=== PATIENT | female | born 1985 | race Caucasian/White ===

== ENCOUNTER 2018-01-27 00:08 | Emergency (ER) | payer SELFPAY ==
[~2018-01-27 00:08] MED LIST: ETON1VAG7; FAM20 PO; FEXO30TA36 PO; HYO125 SL; MULT-1335 PO; PAN40 PO; PER PO; TRET15GE13 TOP; [UNRECOGNIZED DRUG - OTHER]; [UNRECOGNIZED DRUG - OTHER]
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
[2018-01-27 01:30] LABS: PLATELET COUNT, AUTOMATED 345 K/uL (150-450)
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
[2018-01-27 06:13] VITALS: BP 132/90
== END 2018-01-27 09:55 | disposition home or self-care (01) ==
LOC: ER 00:10
DX: F43.20 Adjustment disorder, unspecified (principal); R45.851 Suicidal ideations; F10.10 Alcohol abuse, uncomplicated
CPT/HCPCS: 80305; 80320; 80329; 81001; 82040; 82247; 82310; 82374; 82435; 82565; 82947; 83735; 84075; 84132; 84155; 84295; 84443; 84450; 84460; 84520; 84703; 85025; 99283

== ENCOUNTER → 2018-10-09 | Outpatient (CLI) | payer BC, MEDICAID ==
[~2018-10-09] MED LIST changes: +BET6I IM ONLY; +CLOB15OI16 TP; +DIPH0.5D12 IM; +PREN-127 PO; +SERT25TA87 PO; +SERT25TA90 PO
[2018-10-09 15:38] LABS: PLATELET COUNT, AUTOMATED 260 K/uL (150-450)
== END ==
LOC: LAB 14:02
PROVIDERS: ATTEND Advanced Practice Midwife
DX: Z11.3 Encounter for screening for infections with a predominantly sexual mode of transmission (principal); O13.2 Gestational [pregnancy-induced] hypertension without significant proteinuria, second trimester
CPT/HCPCS: 36415; 82040; 82247; 82310; 82374; 82435; 82565; 82570; 82947; 82950; 84075; 84132; 84155; 84156; 84295; 84450; 84460; 84520; 85025; 86703

== ENCOUNTER → 2018-10-16 | Outpatient (CLI) | payer BC, MEDICAID ==
[~2018-10-16] MED LIST changes: -BET6I IM ONLY
== END ==
LOC: LAB 07:49
PROVIDERS: ATTEND Advanced Practice Midwife
DX: O12.10 Gestational proteinuria, unspecified trimester (principal)
CPT/HCPCS: 84156

== ENCOUNTER → 2018-10-20 | Outpatient (CLI) | payer BC, MEDICAID | LOC: LAB 16:13 | PROVIDERS: ATTEND Advanced Practice Midwife | DX: O13.3 Gestational [pregnancy-induced] hypertension without significant proteinuria, third trimester (principal) | CPT/HCPCS: 36415; 82040; 82247; 82310; 82374; 82435; 82565; 82947; 84075; 84132; 84155; 84295; 84450; 84460; 84520; 85027 ==

== ENCOUNTER → 2018-10-26 | Outpatient (CLI) | payer BC, MEDICAID ==
--- NOTE | 2018-10-26 13:06 | RADIOLOGY IMAGING REPORT ---
FACILITY: [facility] PATIENT NAME: Dawna Ackerman : 1985 MR: [id number] V: [id number] EXAM DATE: ORDERING PHYSICIAN: RODRIGO CRESPO TECHNOLOGIST: Location: [facility] [place] Patient: Dawna Ackerman : 1985 Visit/Account:[id number] Date of Sevice: 10/26/2018 EXAMINATION: Limited Transabdominal OB Ultrasound >14 wks Without Full Anatomic Survey 10/26/2018 9:45 AM HISTORY: Gestational hypertension. Assess growth, PIA, EFW. COMPARISON: None available FINDINGS: Intrauterine gestations: one presentation: vertex heart rate: 179 bpm Amniotic fluid index: 19.0 cm Largest amniotic fluid pocket 6.2 cm Placenta: Posterior without previa Uterus: gravid, otherwise normal Maternal adnexa: negative Cervix: Grossly closed. Transvaginal imaging was not done. Gestational Parameters: BPD: 8.2 cm 33 weeks 1 day HC: 29.6 cm 32 weeks 6 days AC: 27.8 cm 31 weeks 6 days FL: 5.8 cm 30 weeks 2 days Average ultrasound age (AUA): 32 weeks 1 day Estimated gestational age by LMP: 31 weeks 1 day Estimated weight (EFW): 1786 grams +/- 261 grams EFW for LMP percentile: 51 Anatomic Survey: Complete anatomic survey was not performed. IMPRESSION: 1. Single live intrauterine gestation; estimated ultrasound age 32 weeks 1 day (LEONIE 12/20/2018). This is 1 week ahead of expected dates, within range of error. 2. EFW 51st percentile, 1786 g. 3. Normal PIA, 19.0 cm. Report Dictated By: Santy Begum MD at 10/26/2018 12:59 PM Report E-Signed By: Santy Begum MD at 10/26/2018 1:02 PM WSN:[email or web address]
== END ==
LOC: RAD 09:42
PROVIDERS: ATTEND Advanced Practice Midwife
DX: Z02.9 Encounter for administrative examinations, unspecified (principal)

== ENCOUNTER → 2018-10-26 | Outpatient (CLI) | payer BC, MEDICAID | LOC: LAB 10:22 | PROVIDERS: ATTEND Advanced Practice Midwife | DX: O13.9 Gestational [pregnancy-induced] hypertension without significant proteinuria, unspecified trimester (principal) | CPT/HCPCS: 82570; 84156 ==

== ENCOUNTER → 2018-11-02 | Outpatient (CLI) | payer BC, MEDICAID ==
[2018-11-02 15:38] LABS: PLATELET COUNT, AUTOMATED 272 K/uL (150-450)
== END ==
LOC: LAB 10:42
PROVIDERS: ATTEND Advanced Practice Midwife
DX: O13.3 Gestational [pregnancy-induced] hypertension without significant proteinuria, third trimester (principal)
CPT/HCPCS: 36415; 82040; 82247; 82310; 82374; 82435; 82565; 82570; 82947; 84075; 84132; 84155; 84156; 84295; 84450; 84460; 84520; 85025

== ENCOUNTER → 2018-11-05 | Outpatient (CLI) | payer BC, MEDICAID | LOC: LAB 09:41 | PROVIDERS: ATTEND Obstetrics & Gynecology | DX: O13.9 Gestational [pregnancy-induced] hypertension without significant proteinuria, unspecified trimester (principal) | CPT/HCPCS: 82570; 84156 ==

== ENCOUNTER → 2018-11-09 | Outpatient (CLI) | payer BC, MEDICAID ==
[~2018-11-09] MED LIST changes: +BET6I IM ONLY; +DIPH-911 PO; -DIPH0.5D12 IM; +DIPH0.5S2 IM; +IBUP800T37 PO; +NIFE-15 PO; +OMEG100027 PO; +SERT-1 PO
[2018-11-09 15:45] LABS: PLATELET COUNT, AUTOMATED 230 K/uL (150-450)
== END ==
LOC: LAB 08:37
PROVIDERS: ATTEND Student in an Organized Health Care Education/Training Program
DX: O16.3 Unspecified maternal hypertension, third trimester (principal)
CPT/HCPCS: 36415; 82040; 82247; 82310; 82374; 82435; 82565; 82570; 82947; 84075; 84132; 84155; 84156; 84295; 84450; 84460; 84520; 85025

== ENCOUNTER → 2018-11-16 | Outpatient (CLI) | payer BC, MEDICAID | LOC: LAB 15:11 | PROVIDERS: ATTEND Advanced Practice Midwife | DX: O13.3 Gestational [pregnancy-induced] hypertension without significant proteinuria, third trimester (principal) | CPT/HCPCS: 36415; 82040; 82247; 82310; 82374; 82435; 82565; 82570; 82947; 84075; 84132; 84155; 84156; 84295; 84450; 84460; 84520; 85027 ==

== ENCOUNTER → 2018-11-23 | Outpatient (CLI) | payer BC, MEDICAID ==
[2018-11-23 16:50] LABS: PLATELET COUNT, AUTOMATED 222 K/uL (150-450)
== END ==
LOC: LAB 16:34
PROVIDERS: ATTEND Student in an Organized Health Care Education/Training Program
DX: Z36.85 Encounter for antenatal screening for Streptococcus B (principal); O13.3 Gestational [pregnancy-induced] hypertension without significant proteinuria, third trimester
CPT/HCPCS: 36415; 82040; 82247; 82310; 82374; 82435; 82565; 82947; 84075; 84132; 84155; 84295; 84450; 84460; 84520; 85025; 87077; 87081; 87186

== ENCOUNTER → 2018-11-30 | Outpatient (CLI) | payer BC, MEDICAID ==
[~2018-11-30] MED LIST changes: -DIPH-911 PO; +DIPH0.5D12 IM; -DIPH0.5S2 IM; -IBUP800T37 PO; -NIFE-15 PO; -OMEG100027 PO; -SERT-1 PO
== END ==
LOC: LAB 08:08
PROVIDERS: ATTEND Student in an Organized Health Care Education/Training Program
DX: O13.9 Gestational [pregnancy-induced] hypertension without significant proteinuria, unspecified trimester (principal)
CPT/HCPCS: 36415; 82040; 82247; 82310; 82374; 82435; 82565; 82570; 82947; 84075; 84132; 84155; 84156; 84295; 84450; 84460; 84520; 85027

== ENCOUNTER → 2018-12-03 | Outpatient (CLI) | payer BC, MEDICAID ==
--- NOTE | 2018-12-03 13:01 | RADIOLOGY IMAGING REPORT ---
FACILITY: [facility] PATIENT NAME: Dawna Ackerman : 1985 MR: [id number] V: [id number] EXAM DATE: ORDERING PHYSICIAN: RODRIGO CRESPO TECHNOLOGIST: Location: [facility] Patient: Dawna Ackerman : 1985 Visit/Account:[id number] Date of Sevice: 12/03/2018 EXAMINATION: Ultrasound transabdominal OB HISTORY: Evaluate growth and PIA COMPARISON: October 26, 2018 TECHNIQUE: Transabdominal imaging was performed for assessment of the fetus and maternal pelvic structures. T ransvaginal imaging was not performed. FINDINGS: Placenta: Fundal without previa. Uterus: Gravid, otherwise normal Cervix: Not evaluated Maternal Ovaries: Not visualized. Maternal and other adnexa findings: Not evaluated Intrauterine gestations: One. presentation: Cephalic heart rate: Normal and regular at 149 bpm Amniotic fluid index: 15.06 cm Largest amniotic fluid pocket: 6.27 cm Gestational Parameters: BPD: 9.07 cm 36 weeks/ six days, 68% HC: 31.89 cm 36 weeks/ zero days, 11% AC: 31.95 cm 36 weeks/ zero days, 42% FL: 7.14 cm 36 weeks/ five days, 48% Average ultrasound age (AUA): 36 weeks/three days, LEONIE 12/28/2018 Estimated gestational age by LEONIE: 36 weeks/four days, LEONIE 12/27/2018 Estimated weight (EFW): 2864 grams +/- 418 grams EFW for LEONIE: 42 percentile Anatomic Survey: Anatomic survey not performed IMPRESSION: Single viable fetus in cephalic presentation with an estimated gestational age by measur ements of 36 weeks and three days. Estimated weight by LMP 36 weeks and four days Report Dictated By: Felicita Berry MD at 12/03/2018 12:51 PM Report E-Signed By: Felicita Berry MD at 12/03/2018 12:56 PM WSN:[email or web address]
== END ==
LOC: US 09:35
PROVIDERS: ATTEND Student in an Organized Health Care Education/Training Program
DX: Z02.9 Encounter for administrative examinations, unspecified (principal)

== ENCOUNTER 2018-12-07 17:03 | Outpatient (CLI) | payer BC, MEDICAID ==
[2018-12-07 17:30] VITALS: BP 160/101
[2018-12-07 17:53] LABS: PLATELET COUNT, AUTOMATED 226 K/uL (150-450)
[2018-12-14] MEDS ORDERED: NIFE-15 PO (09:36)
[2018-12-14] MEDS ORDERED: IBUP800T37 PO (09:36)
== END 2018-12-07 19:40 | disposition home or self-care (01) ==
LOC: OB 17:03 → UNDOADMIN 17:03 → L&D 17:03 → UNDODISIN 19:40 → EDSTATUS 12-13 07:14
PROVIDERS: ATTEND Student in an Organized Health Care Education/Training Program
DX: O47.1 False labor at or after 37 completed weeks of gestation (principal); Z3A.37 37 weeks gestation of pregnancy
CPT/HCPCS: 36415; 59025; 82040; 82247; 82310; 82374; 82435; 82565; 82570; 82947; 84075; 84132; 84155; 84156; 84295; 84450; 84460; 84520; 85025; 99213

== ENCOUNTER → 2018-12-07 | Outpatient (CLI) | payer BC, MEDICAID | LOC: LAB 13:45 | PROVIDERS: ATTEND Student in an Organized Health Care Education/Training Program | DX: Z02.9 Encounter for administrative examinations, unspecified (principal) ==

== ENCOUNTER 2018-12-11 04:29 | Inpatient (IN) | payer BC, MEDICAID ==
[~2018-12-11] VITALS: Ht 162.6 cm; Wt 104.8 kg
[2018-12-11] MEDS ORDERED: LR(*) 1000 ML BAG 1,000 ML IV PRN (04:31)
[2018-12-11] MEDS ORDERED: DLR(*) 1000 ML BAG 1,000 ML IV PRN (04:31)
[2018-12-11 04:40] VITALS: BP 181/94; Ht 162.6 cm; Wt 104.8 kg
[2018-12-11] MEDS ORDERED: LIDOCAINE/SOD BICARB 8.4% SYR ONE (04:59)
[2018-12-11] MEDS ORDERED: OXYTOCIN 30 UNIT/D5LR 500 ML 500 ML IV PRN (05:00)
[2018-12-11] MEDS ORDERED: PENICILLIN G 5 MILLUN/100 ML 100 ML IVPB ONE (05:30)
[2018-12-11] MEDS ORDERED: fentaNYL CITR 100 MCG/2 ML AMP IVP PRN (06:20)
[2018-12-11] MEDS ORDERED: OXYTOCIN 30 UNIT/D5LR 500 ML 500 ML ONE (06:28)
[2018-12-11] MEDS ORDERED: fentaNYL CITR 100 MCG/2 ML AMP ONE (06:29)
[2018-12-11] MEDS ORDERED: LIDO/EPI 2% MPF 1:200,000 20ML EPI PRN (06:40)
[2018-12-11] MEDS ORDERED: BUPIVACAINE 0.5% INJ 30ML VIAL EPI PRN (06:40)
[2018-12-11] MEDS ORDERED: FENTANYL/ROPIVACAINE 100 ML BAG EPI PRN (06:40)
[2018-12-11] MEDS ORDERED: fentaNYL CITR 100 MCG/2 ML AMP IT PRN (06:40)
[2018-12-11] MEDS ORDERED: LIDOCAINE/PF 2% 200MG/10ML AMP 200 MG/10 ML AMPUL EPI PRN (06:40)
[2018-12-11] MEDS ORDERED: BUPIVACAINE 0.25% MPF INJ EPI PRN (06:40)
[2018-12-11 06:43] LABS: PLATELET COUNT, AUTOMATED 227 K/uL (150-450)
[2018-12-11] MEDS ORDERED: BUPIVACAINE 0.25% MPF INJ ONE (06:49)
--- NOTE | 2018-12-11 08:14 | History & Physical ---
History of Present Illness Age of Patient: 33 : 1 Para or TPAL: 0 EDC per U/S: Dec 27, 2018 Estimated Gestational Age: 37.5 Chief Complaint Patient reports a gush of fluid about 1am on 12/11/18 while she was sleeping. When she got up the fluid continued to leak and was clear. Her contractions started shortly there after and were mild in nature. +FM, denies VB, DENTON, vision changes and RUQ pain. She called motion picture scene builder [facility] and was told to at least come in at 0400 as she is GBS and needed to receive PCN in labor. Contractions became intense about 4 minutes apart and difficult to talk through once she arrived at the hospital at 4:20 History Patient's Blood Type: B Positive Rubella Status: Immune Group B Strep Screen: Negative Obstetrical History: Pre-eclampsia without severe features with significant proteinuria Allergies: Coded Allergies: No Known Allergies (Verified Allergy, Mild, 04/18/17) Social History: Denies ETOH, smoking, and illicit drug use including marijuana Family History: Cervical cancer MOTHER FH: breast cancer M AUNT FH: colon cancer MGF Med Rec Home Meds Active Scripts Sertraline Hcl (SERTRALINE HCL) 25 Mg Tablet, 4 TAB PO QDAY, #90 TAB 3 Refills 100mg PO Q Day Prov:RODRIGO CRESPO [facility] 11/05/18 Reported Medications Diphenhydramine Hcl (UNISOM) 50 Mg Capsule, 50 MG PO PRN PRN for SLEEP, CAPSULE 12/11/18 [place]-3 Fatty Acids (FISH OIL CONCENTRATE) 1,000 Mg Capsule, 1000 MG PO, CAPSULE 12/11/18 Vits W-Ca,Fe,Fa(<1MG) ( VITAMINS) 1 Each Tablet, 1 EACH PO DAILY, TAB 08/31/18 Discontinued Scripts Sertraline Hcl (ZOLOFT) 25 Mg Tablet, 1 TAB PO QDAY for Anxiety, #40 TAB 0 Refills Take one 25mg tab daily for 5 days and then increase to 2 tabs (50mg) daily. Prov:RODRIGO CRESPO CN 09/22/18 Clobetasol Propionate (CLOBETASOL PROPIONATE) 15 Gm Oint...g., 0 TP QDAY for lichen sclerosis for 30 Days, #1 TUBE 1 Refill Apply daily to affected area only until symptoms resolve and then for 3 more days Prov:RODRIGO CRESPO CN 09/22/18 Review of Systems Constitutional: No Fever Neurological: No Syncope, No Dizziness Eyes: No Vision Change Cardiovascular: No Chest Pain Respiratory: No Shortness of Breath Gastrointestinal: No Nausea, No Vomiting, No Diarrhea; Abdominal Pain (moderate to severe contraction pain, coping well with rocking, swaying and moaning) Psychiatric: Depression, Anxiety (takes zoloft daily with good effect) Exam General Exam Vital Signs Vital Signs Date Time Temp Pulse Resp B/P (MAP) Pulse Ox O2 Delivery O2 Flow Rate FiO2 12/12/18 03:15 97.7 76 20 131/80 (97) Room Air 12/11/18 04:40 96 General Apperance: Alert/Awake/No Acute Distress Neuro: No Gross deficits Eyes: Normal Extraocular Movement & Vison ENT: Normal Cardiovascular: Regular Rate and Rhythm Respiratory: No Respiratory Distress, Clear to Auscultation Abdomen: Gravid - Non-Tender, RUQ Non-Tender : Normal Musculoskeletal: No Weakness/Pain Extremities: No Cyanosis,Clubbing or Edema Integumentary: Skin Intact without Lesions or Rash Psychological: Alert & Oriented X3, Appropriate Mood & Affect Vaginal Discharge/Fluid?: Clear Fluid, Moderate Amount Cervical Dialation: 4 Cervical Effacement (%): 80 Cervical Consistency: Soft Cervical Position: Mid Station: -2 Presentation: Vertex Uterine Contractions(Q min): 4 Uterine Contraction Strength: Moderate UC Resting Tone: Soft Fetus Feeling Movement?: Yes Estimated Weight(grams): 3000 Heart Tones: 130 Heart Tone Variabilty: Moderate FHT Accelerations: Present FHT Decelerations: None FHT Category: I Medical Decision Making Data Points Result Diagram: 12/12/18 0554 12/11/18 0632 Assessment and Plan Hospital Day: 1 [facility] HEL[facility] Plan: Routine Labor Care Problems: (1) Uterine contractions during Onset Date: ~ 12/11/2018 Status: Acute Assessment & Plan: GISELLE is a 33 y.o. at 37w5d wks with an Estimated Date of Delivery: 12/17/18 dated by LMP and US Labor state: Active labor, rapid cervical change from 4-8cm, continue to encourage to move in upright positions or what is comfortable for her. SROM at home at 0100 and continued leaking. Admit to Labor and delivery, start IV and draw CBC, CMP and T&S, start PCN GBS treatment RAMÓN well-being: Category I-II FHT for occasional variables: Continuous monitoring for rapid labor progression Maternal well-being: Mild range BPs with the exception of one severe upon arrival but in a considerable amount of pain, will closely monitor, afebrile, SROM for moderate amount of clear fluid at home at 0100 PNL: GBS positive, started as soon as pt arrived, plan for second dose in 4 hours, Type/Rh B+, rubella immune Pain Management: Plans for an unmedicated , aromatherapy, hydrotherapy, considering epidural, but was comfortable with one dose of fentanyl Feed: Breast c/b: * Preeclampsia without severe features * Anxiety * Obesity Anticipate , Provider continuously in room RODRIGO CRESPO CNM Dec 11, 2018 08:14
[2018-12-11] MEDS ORDERED: ACETAMINOPHEN 325 MG TAB PO PRN (08:15)
[2018-12-11] MEDS ORDERED: MAGNESIUM HYDROXIDE* 30ML UDCP PO PRN (08:15)
[2018-12-11] MEDS ORDERED: APAP/HYDROCODONE 325/5 TAB PO PRN (08:15)
[2018-12-11] MEDS ORDERED: GLYCERIN/WITCH HAZEL LEAF 1 PK TP PRN (08:15)
[2018-12-11] MEDS ORDERED: HYDROCORTISONE 2.5% CR 30GM TB PR PRN (08:15)
[2018-12-11] MEDS ORDERED: BENZOCAINE 20% 60 ML BTL TP PRN (08:15)
[2018-12-11] MEDS ORDERED: LANOLIN OINT 7 GM TUBE TP PRN (08:15)
--- NOTE | 2018-12-11 08:15 | OB Delivery Note ---
Delivery Note Vaginal Delivery Type: Spont. Vaginal Delivery Delivery Date: Dec 11, 2018 Delivery Time: 07:30 Estimated Gestational Age(wks): 37.5 Delivery Anesthesia: IV Opiate Infant Sex: Male Infant Weight (gms): 2834 Apgars: 1 Minute, 5 Minute Repair Needed: Superficial, Labial (right minora) Estimated Blood Loss: 300 Delivery Complications: Nuchal Cord (x2) Notes: Pt was admitted to the family care unit at 0430 on 12/11/18 in active labor.Her has been complicated by Preeclampsia without severe features. Her last P:C was 1.64, but all labs are WNL. She is not on any BP medications as her blood pressures have been mild range without symptoms. She had a planned IOL for 12/13/18. Cervical exam on admission was 4/80/-2. She had SROM on 12/11/18 at 0100 for clear moderate fluid. Pt was GBS positive and received inadequate treatment due to rapid labor. Patient understands that baby will need to stay 48 hours for observation. FHR were CAT I primarily throughout first stage. Pt utilized non- pharmacological methods such as aromatherapy, controlled breathing, and one dose of IV fentanyl. Pt was completely dilated on 12/11/18 at 0707 and pt began spontaneously pushing at that time. At 0730 pt had a NSVB of live male APGARS 6/8, weighing 6lbs 4oz. The head delivered spontaneously in the OA position and restituted ANA M with two nuchal cords that were reduced after baby was delivered through somersault. The anterior shoulder was delivered a traumatically and the po sterior shoulder followed. Body delivered easily. Face was wiped and CNM and father of the baby then placed baby on the maternal abdomen. The was dried and stimulated and noted to have good tone, but poor color with poor respiratory effort. Baby was continuously stimulated and then noted to have vigorous cry, good respiratory effort and good color. Baby stayed on maternal a bdomen. Cord was clamped X 2 by CNM after pulsations ceased and cut by patient's spouse. Mother was in left lateral position. At 0738 the placenta and membranes delivered spontaneous and intact with a 3 vessel cord after gentle downward traction 30 units of Pitocin was given in 500cc IV wide open to firm the uterus and started immediately after placenta delivery. Upon inspection of the perineum it was found to be intact, but a right labial superficial sheer was noted and was repaired to approximate the skin using a 4.0 Vicryl under 1% lidocaine. Patient tolerated the procedure well. Hemostasis observed. EBL 300 with fundus firm with minimal bleeding. Mom and baby were left in stable condition. "I personally examined the patient and there are no unintended foreign objects in the vagina and all sponge, lap and needle counts were correct." Lorraine Caballero CNM was present throughout the entire delivery and Dr. Maulik Paniagua was on the unit for backup if needed [facility]oak Room Attendant in Attendence: LORRAINE Pike CNM Dec 11, 2018 08:15
[2018-12-11] MEDS: IBUPROFEN 800 MG TAB PO SCH ×2 (09:00→13:36)
[2018-12-11] MEDS: DOCUSATE CALCIUM 240 MG CAP PO SCH ×2 (09:00→21:00)
[2018-12-11] MEDS ORDERED: PENICILLIN G 2.5 MILLUN/100 ML 100 ML IVPB SCH (09:30)
[2018-12-11] MEDS ORDERED: LIDOCAINE 1% LOCAL 300 MG/30ML 30 ML ONE (09:50)
[2018-12-11] MEDS ORDERED: OMEG100027 PO (10:00)
[2018-12-11] MEDS ORDERED: DIPH-911 PO (10:00)
[2018-12-11 10:35] VITALS: BP 160/89
[2018-12-11 13:36] VITALS: BP 150/78
[2018-12-11 19:45] VITALS: BP 147/83
[2018-12-11] MEDS: SERTRALINE HCL 25 MG TABLET PO SCH (21:29)
[2018-12-11] MEDS ORDERED: IBUPROFEN 800 MG TAB PO SCH (22:00)
[2018-12-11 23:30] VITALS: BP 172/93
[2018-12-12] VITALS (7 sets, daily range): BP systolic 131–184; BP diastolic 77–103
--- NOTE | 2018-12-12 08:54 | OB/GYN Progress Note ---
OB Subjective Progress Notes Subjective Doing well. Pain controlled with oral medications. Tolerating regular diet. Ambulating. Voiding. Normal lochia. No preeclampsia symptoms. OB Objective Physical Exam Vital Signs Date Time Temp Pulse Resp B/P (MAP) Pulse Ox O2 Delivery O2 Flow Rate FiO2 12/12/18 03:15 97.7 76 20 131/80 (97) Room Air 12/11/18 04:40 96 Intake and Output 12/12/18 07:00 Intake Total 1245 ml Output Total 800 ml Balance 445 ml Intake Oral 240 ml IV Total 1005 ml Output Urine Total 800 ml # Voids 3 General Appearance: Alert/Awake/No Acute Distress Neurological: No Gross deficits Eyes: Normal Extraocular Movement & Vison Cardiovascular: Normal Rhythm & Peripheral Pulses, Regular Rate and Rhythm Respiratory: No Respiratory Distress, Clear to Auscultation Abdomen: Soft, Non-Tender, Non-Distended, Fundus Firm Extremities: Edema (1+ bilateral LE); No Clonus Integumentary: Skin Intact without Lesions or Rash Psychological: Alert & Oriented X3, Appropriate Mood & Affect Result Diagram: 12/12/18 0554 12/11/18 0632 Assessment and Plan Problems: (1) Care and examination immediately after delivery Assessment & Plan: PPD#1 s/p . Doing well. is going well. (2) Preeclampsia Assessment & Plan: Preeclampsia without severe features. BP is elevated since delivery. Will initiate Procardia 30XL today and re-evaluate tomorrow. Likely discharge home tomorrow. AMERICA FLEMING MD Dec 12, 2018 08:54
[2018-12-12] MEDS: DOCUSATE CALCIUM 240 MG CAP PO SCH ×2 (09:00→21:00)
[2018-12-12] MEDS: IBUPROFEN 800 MG TAB PO SCH ×2 (09:03→17:45)
[2018-12-12] MEDS: PRENATAL PO SCH (09:03)
[2018-12-12] MEDS: MULTIVIT PO SCH (09:03)
[2018-12-12] MEDS: IRON PO SCH (09:03)
[2018-12-12] MEDS: [UNRECOGNIZED DRUG - OTHER] PO SCH (09:03)
[2018-12-12] MEDS: NIFEdipine XL 30 MG TABCR PO SCH (09:13)
[2018-12-12] MEDS: SERTRALINE HCL 25 MG TABLET PO SCH (21:00)
[2018-12-13] MEDS: IBUPROFEN 800 MG TAB PO SCH ×2 (01:25→08:57)
[2018-12-13 03:30] VITALS: BP 122/64
[2018-12-13 08:04] VITALS: BP 146/75
[2018-12-13] MEDS: MULTIVIT PO SCH (08:57)
[2018-12-13] MEDS: DOCUSATE CALCIUM 240 MG CAP PO SCH (08:57)
[2018-12-13] MEDS: NIFEdipine XL 30 MG TABCR PO SCH (08:57)
[2018-12-13] MEDS: [UNRECOGNIZED DRUG - OTHER] PO SCH (08:57)
[2018-12-13] MEDS: IRON PO SCH (08:57)
[2018-12-13] MEDS: PRENATAL PO SCH (08:57)
--- NOTE | 2018-12-13 09:20 | OB/GYN Discharge Summary ---
Discharge Summary Reason for Hosp/Final Diag: (1) Care and examination immediately after delivery Hospital Course & Plan: PPD#2 s/p . Doing well. is going well. Baby's bili is up so he in under the bili lights, but will most likely go home today. Reports bottom is a little sore but using dermaplast and yue bottle with good effect. She is also taking ibuprofen and tolerating well. She has a significant history of anxiety and is currently on 100mg of Zoloft daily. She is comfortable at this dose, but will let me know. Denies DENTON, vision changes, RUQ pain, BLE calf or tenderness. (2) Preeclampsia Status: Acute Hospital Course & Plan: Preeclampsia without severe features. BP has had severe range elevation since delivery, so was started on Procardia 30XL yesterday and BP have been better today. Pt will continue on this dose at home for now. Pt will be discharged today. [place] Vital Signs Vital Signs Date Time Temp Pulse Resp B/P (MAP) Pulse Ox O2 Delivery O2 Flow Rate FiO2 12/13/18 08:04 98.0 20 146/75 (98) Room Air 12/13/18 03:30 82 94 Weight (Pounds): 231 Result Diagram: 12/12/18 0554 12/12/18 1000 Condition: Improved Discharge: Home Home Meds Active Scripts Sertraline Hcl (SERTRALINE HCL) 25 Mg Tablet, 4 TAB PO QDAY, #90 TAB 3 Refills 100mg PO Q Day Prov:RODRIGO CRESPO CNM 11/05/18 Reported Medications Diphenhydramine Hcl (UNISOM) 50 Mg Capsule, 50 MG PO PRN PRN for SLEEP, CAPSULE 12/11/18 [place]-3 Fatty Acids (FISH OIL CONCENTRATE) 1,000 Mg Capsule, 1000 MG PO, CAPSULE 12/11/18 Vits W-Ca,Fe,Fa(<1MG) ( VITAMINS) 1 Each Tablet, 1 EACH PO DAILY, TAB 08/31/18 Discontinued Scripts Sertraline Hcl (ZOLOFT) 25 Mg Tablet, 1 TAB PO QDAY for Anxiety, #40 TAB 0 Refil ls Take one 25mg tab daily for 5 days and then increase to 2 tabs (50mg) daily. Prov:RODRIGO CRESPO CNM 09/22/18 Clobetasol Propionate (CLOBETASOL PROPIONATE) 15 Gm Oint...g., 0 TP QDAY for lichen sclerosis for 30 Days, #1 TUBE 1 Refill Apply daily to affected area only until symptoms resolve and then for 3 more days Prov:RODRIGO CRESPO CNM 09/22/18 Follow up Referrals: C[facility] RELATIONS [facility]ORD[facility] @ [facility] [place] with RODRIGO CRESPO CNM Follow up in: 2 wks PO Discharge Diet: As Tolerates, Resume Prior Admit Diet Discharge Activity: As Tolerates, Pelvic Rest Special Instructions: Please make an appt for nurse visit to check your BP next week! Thanks, RODRIGO Snyder CNM Dec 13, 2018 09:19
[2018-12-13 15:31] VITALS: BP 149/92
[2018-12-14] MEDS ORDERED: NIFE-15 PO (09:36)
[2018-12-14] MEDS ORDERED: IBUP800T37 PO (09:36)
== END 2018-12-13 15:41 | disposition home or self-care (01) | DRG 807 ==
LOC: OB 04:29
PROVIDERS: ADMIT Student in an Organized Health Care Education/Training Program; ATTEND Student in an Organized Health Care Education/Training Program
PROC: 10E0XZZ Delivery of Products of Conception, External Approach (ICD-10-PCS; principal; 2018-12-11)
PROC: 0HQ9XZZ Repair Perineum Skin, External Approach (ICD-10-PCS; 2018-12-11)
DX: O14.04 Mild to moderate pre-eclampsia, complicating childbirth (principal); Z37.0 Single live birth; O99.824 Streptococcus B carrier state complicating childbirth; O99.214 Obesity complicating childbirth; O99.344 Other mental disorders complicating childbirth; O69.1XX0 Labor and delivery complicated by cord around neck, with compression, not applicable or unspecified; O70.0 First degree perineal laceration during delivery; E66.9 Obesity, unspecified; F41.9 Anxiety disorder, unspecified; Z3A.37 37 weeks gestation of pregnancy
CPT/HCPCS: 36415; 82040; 82247; 82310; 82374; 82435; 82565; 82947; 84075; 84112; 84132; 84155; 84295; 84450; 84460; 84520; 85025; 85027; 86850; 86900; 86901; J2001; J2540; J2590; J3010; J7120